=== PATIENT | male | born 1985 | race Two or more races ===

== ENCOUNTER 2020-04-18 22:17 | Emergency (ER) | payer OTHER ==
[~2020-04-18] VITALS: Ht 167.6 cm; Wt 68.2 kg
[2020-04-19] MEDS ORDERED: LIDOcaine 1% W/epiNEPHrine 1:200,000 10ml vial IJ ONE (00:40)
[2020-04-19 02:00] VITALS: BP 120/78
== END 2020-04-19 02:01 | disposition home or self-care (01) ==
LOC: ER 22:18
DX: S91.115A Laceration without foreign body of left lesser toe(s) without damage to nail, initial encounter (principal); F12.90 Cannabis use, unspecified, uncomplicated; Z72.89 Other problems related to lifestyle; W26.9XXA Contact with unspecified sharp object(s), initial encounter; Y93.89 Activity, other specified; Y92.89 Other specified places as the place of occurrence of the external cause; Y99.8 Other external cause status
CPT/HCPCS: 12001; 73660; 99283